=== PATIENT | female | born 1945 | race Caucasian/White ===

== ENCOUNTER → 2023-03-24 11:52 | Outpatient (CLI) | payer MEDICARE, OTHER, SELFPAY ==
--- NOTE | 2023-03-24 | DI.CT.S_ITS ---
PROCEDURE: CT ANGIO CHEST INDICATIONS: ASCENDING AORTA DILATION/H/O TRICUSPID VALVE REPAI TECHNIQUE: After the administration of intravenous contrast, 2.5 mm thick sections acquired from the lung apices to the posterior lung bases. Maximum intensity projection (MIP) oblique sagittal reformats were then acquired parallel to the aortic arch. For radiation dose reduction, the following was used: automated exposure control. COMPARISON: None. FINDINGS: Image quality: Excellent. Aorta: Ascending aorta is aneurysmal in caliber, measuring 4.3 cm. No dissection. Bovine arch anatomy. Great vessel origins are widely patent. Transverse arch and descending thoracic aorta are of normal caliber. Celiac, SMA, and bilateral renal arteries are patent. Mediastinum: Cardiomegaly, pacemaker. No pericardial effusion. No mediastinal or hilar adenopathy by size criteria. Central pulmonary arteries are normal in size. Esophagus is normal in caliber. No hiatal hernia. Lungs and pleura: No acute airspace opacities. No pleural effusions or pneumothorax. Central and peripheral airways are patent and normal in caliber. Bones and chest wall: No axillary adenopathy by size criteria. Thyroid gland is small . No suspicious bony lesions. No vertebral body compression fractures. Bilateral mammoplasties Abdomen: Visualized upper abdominal solid organs and bowel loops appear normal. IMPRESSION: 1. Ascending aortic aneurysm measuring 4.3 cm in diameter. 2. Cardiomegaly. Dictated by: Benson Paul M.D. on 03/24/2023 at 17:54 Approved by: Benson Paul M.D. on 03/24/2023 at 18:01
--- NOTE | 2023-03-24 | DI.ECHO.S_ITS ---
[place] +---------+ [facility] +---------+ : : [address] : [place] [address] : : : : [id number] : : : : Phone: [phone] Echocardiogram Report + + :Name: ABBY ALLEN Study Date: 03/24/2023 Height: 67 in : :[facility] ReadingLocation: Weight: 139 lb : : Gender: Female BSA: 1.7 m2 : :: 1945 Age: 77 yrs BP: 140/78 mmHg: :Reason For Study: ASCENDING AORTA DILATATION : :Ordering Physician: SERENA, : :CANDIDA Performed By: Madelin Cuevas : :Referring: CANDIDA LYONS : + + Interpretation Summary The ejection fraction is estimated to be 65-70%. Diastolic function could not be accurately assessed due to paced rhythm. The left atrium is severely dilated. The right ventricle is normal in size and function. The right atrium is moderately dilated. 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 The aortic valve is bicuspid. There is mild to moderate aortic stenosis. An annuloplasty ring is noted in the tricuspid position. There is mild to moderate tricuspid regurgitation. The right ventricular systolic pressure is estimated to be at least 31 mmHg based on an estimated right atrial pressure of 3 mm Hg. The ascending aorta is mildly enlarged, 4.0 cm. Procedure: A two-dimensional transthoracic echocardiogram with color flow and Doppler was performed. The study quality was technically adequate. There is no prior echocardiogram noted for this patient. The patient has a paced rhythm. The heart rate ranged between 70 bpm during the study. Left Ventricle: The left ventricle is normal in size and wall thickness. The ejection fraction is estimated to be 65-70%. Diastolic function could not be accurately assessed due to paced rhythm. Right Ventricle: There is a pacemaker lead in the right ventricle. The right ventricle is normal in size and function. Atria: The left atrium is severely dilated. The right atrium is moderately dilated. There is a catheter/pacemaker lead seen in the right atrium. There is no Doppler evidence for an interatrial shunt. Mitral Valve: There is a bioprosthetic mitral valve. The mitral valve mean gradient is 5.2 mmHg. The mitral valve EOA is 5.7 cm^2. There is trace mitral regurgitation. Aortic Valve: The aortic valve is bicuspid. The peak aortic velocity is 2.9 m/sec. The aortic valve mean gradient is 21 mmHg. There is mild to moderate aortic stenosis. There is trace aortic regurgitation. Tricuspid Valve: An annuloplasty ring is noted in the tricuspid position. There is mild to moderate tricuspid regurgitation. The right ventricular systolic pressure is estimated to be at least 31 mmHg based on an estimated right atrial pressure of 3 mm Hg. Pulmonic Valve: The pulmonic valve leaflets are thin and pliable; valve motion is normal. There is mild pulmonic regurgitation. Great Vessels: The aortic root is normal size. The ascending aorta is mildly enlarged. The IVC is of normal diameter and collapses greater than 50% with a sniff. This suggests a low right atrial pressure of 3 mm Hg. Pericardium/ Pleura There is no pericardial effusion. There is no pleural effusion. MMode/2D Measurements & Calculations LVIDd: 4.7 cm LVOT diam: 2.0 cm LVIDs: 2.9 cm Ao root diam: 3.5 cm FS: 39.1 % asc Aorta Diam: 4.0 cm IVSd: 1.1 cm Ao Arch Diam (Prox Trans): 3.0 cm LVPWd: 0.97 cm LV goodman. diameter/BSA (cm/m^2): 2.7 LV sys. diameter/BSA (cm/m^2): 1.6 LA A2 area: 27.8 cm2 RA long axis: 5.3 cm LA A4 area: 25.1 cm2 RA area: 20.7 cm2 LA length (vol): 5.7 cm RA vol: 69.1 ml LA vol: 103.4 ml RA : 39.9 ml/m2 LA vol index: 59.7 ml/m2 IVC diam: 1.9 cm RVD1 (basal): 3.7 cm RVD2 (mid): 2.8 cm TAPSE: 1.9 cm Doppler Measurements & Calculations Ao V2 max: 290.3 cm/sec LVOT Max Sawyer: 81.6 cm/sec Ao V2 mean: 200.1 cm/sec LV V1 max P.7 mmHg Ao max P.3 mmHg LV V1 VTI: 18.4 cm Ao mean P.5 mmHg JUAREZ(I,D): 0.90 cm2 Ao V2 VTI: 61.4 cm JUAREZ(V,D): 0.84 cm2 sev ratio: 0.30 JUAREZ indexed to BSA (cm^2/m^2): 0.52 MV E max sawyer: 188.5 cm/sec TR max sawyer: 262.1 cm/sec MV A max sawyer: 3.1 cm/sec TR max P.5 mmHg MV E/A: 60.8 PA V2 max: 75.6 cm/sec Med Peak E' Sawyer: 5.0 cm/sec PA V2 mean: 56.2 cm/sec E/E' med: 38.0 PA mean P.4 mmHg Lat Peak E' Sawyer: 4.2 cm/sec PA pr(Accel): 32.8 mmHg E/E' lat: 45.4 E/e' average: 41.7 MV dec time: 0.27 sec MVA(VTI): 1.3 cm2 MV V2 mean: 97.1 cm/sec SV(LVOT): 55.2 ml MV mean P.2 mmHg MV V2 VTI: 43.0 cm Reading Physician:12:37 PM
[2023-03-24 13:00] LABS: Estimated Glomerular Filt Rate > 60 mL/min (>60)
== END ==
PROVIDERS: Radiology Diagnostic Radiology; Referring Provider Nurse Practitioner Acute Care; Visit Provider Nurse Practitioner Acute Care
DX: I71.21 Aneurysm of the ascending aorta, without rupture (principal); I51.7 Cardiomegaly; Z98.890 Other specified postprocedural states
CPT/HCPCS: 36415; 71275; 82565; 93306; Q9967

== ENCOUNTER → 2025-02-27 11:02 | Outpatient (CLI) | payer MEDICARE, OTHER, SELFPAY ==
--- NOTE | 2025-02-27 11:05 | DI.CT.S_ITS ---
PROCEDURE: CT ANGIO CHEST INDICATIONS: ASCENDING AORTA/H/O TRICUSPID VALVE REPAIR TECHNIQUE: After the administration of intravenous contrast, 2.5 mm thick sections acquired from the lung apices to the posterior lung bases. Maximum intensity projection (MIP) oblique sagittal reformats were then acquired parallel to the aortic arch. For radiation dose reduction, the following was used: automated exposure control. COMPARISON: [facility], CT, CT ANGIO CHEST, 03/24/2023, 13:30. FINDINGS: Image quality: Excellent. Aorta: The ascending aorta measures 4.3 cm in diameter. No mural irregularity or contrast extravasation to suggest aortic injury. Lower Neck: No enlarged lymph nodes. Thyroid: No thyroid nodules which require sonographic follow up, per consensus guidelines. Axillae: No enlarged lymph nodes. Chest Wall: Unremarkable. Bones: Unremarkable. Lungs and Pleura: No pneumothorax or pleural effusions. No consolidation or suspicious nodules. Heart: There is again seen 4 chamber cardiomegaly. Stable filling defect in the left atrial appendage. No pericardial effusion. Thoracic Vessels: Pulmonary arteries demonstrate normal size. Mediastinum and Stacy: No enlarged lymph nodes. Esophagus: No wall thickening. No hiatal hernia. Upper Abdomen: Visualized upper abdomen solid organs and bowel loops appear normal. IMPRESSION: 1. Stable ectasia of the ascending aorta measuring 4.3 cm. No new focal lesion seen. 2. Significant cardiomegaly, with moderate to large amount of thrombus in the left atrial appendage, stable. Dictated by: Jay Waldrop M.D. on 02/27/2025 at 15:10 Approved by: Jay Waldrop M.D. on 02/27/2025 at 15:16
[2025-02-27 11:31] LABS: Estimated Glomerular Filt Rate > 60 mL/min (>60)
== END ==
PROVIDERS: Referring Provider Internal Medicine Cardiovascular Disease; Visit Provider Internal Medicine Cardiovascular Disease
DX: I77.810 Thoracic aortic ectasia (principal); Q23.81 Bicuspid aortic valve; Z95.3 Presence of xenogenic heart valve; Z98.890 Other specified postprocedural states
CPT/HCPCS: 36415; 71275; 82565; Q9967

== ENCOUNTER → 2025-03-09 15:27 | Outpatient (CLI) | payer MEDICARE, OTHER, SELFPAY ==
--- NOTE | 2025-03-09 15:30 | DI.ECHO.S_ITS ---
[place] +---------+ Hospital : : [address] : : [place] : : [id number] : : Phone: [phone] Echocardiogram Report + + :Name: ABBY ALLEN Study Date: 03/09/2025 Height: 67 in : :Hospital ReadingLocation: Weight: 145 lb : : Gender: Female BSA: 1.8 m2 : :: 1945 Age: 79 yrs BP: 175/98 mmHg: :Reason For Study: HX MVR, BICUSPID AV, TV REPAIR : :Ordering Physician: OBDULIA, : :LISSY Hollis Performed By: Sharad Daniels : :Referring: LISSY FLORES : + + Interpretation Summary The ejection fraction is estimated to be 60-65%. Diastolic function could not be accurately assessed due to confounding valvular disease. The left atrium is severely dilated. The right ventricle is normal in size and function. The right atrium is moderately dilated. There is a well-seated, normal functioning bioprosthetic mitral valve. The aortic valve is bicuspid. There is moderate aortic stenosis. An annuloplasty ring is noted in the tricuspid position. There is mild tricuspid regurgitation. The right ventricular systolic pressure is estimated to be at least 43 mmHg based on an estimated right atrial pressure of 8 mm Hg. The ascending aorta is mildly enlarged. Compared to the prior study 03/16/2023, the aortic valve gradient has increased. Procedure: A two-dimensional transthoracic echocardiogram with color flow and Doppler was performed. The study quality was technically adequate. Comparison is made with the echocardiogram of 03/24/2023. The patient has a paced rhythm. Left Ventricle: The left ventricle is normal in size. Left ventricular wall thickness is mild-moderately increased. There is no ventricular septal defect visualized. The ejection fraction is estimated to be 60-65%. Septal motion is consistent with post-operative state. Diastolic function could not be accurately assessed due to confounding valvular disease. Right Ventricle: The right ventricle is normal in size and function. There is a pacemaker lead in the right ventricle. Atria: The left atrium is severely dilated. The right atrium is moderately dilated. There is a catheter/pacemaker lead seen in the right atrium. There is no Doppler evidence for an interatrial shunt. Mitral Valve: There is a bioprosthetic mitral valve. Bioprosthesis leaflets are thickened but move well. The mitral valve mean gradient is 5.1 mmHg. There is trace mitral regurgitation. Aortic Valve: The aortic valve is bicuspid. There is moderate aortic stenosis. The peak aortic velocity is 3.4 m/sec. The aortic valve mean gradient is 30 mmHg. The dimensionless index is 0.24. No aortic regurgitation is present. Tricuspid Valve: An annuloplasty ring is noted in the tricuspid position. There is mild tricuspid regurgitation. The right ventricular systolic pressure is estimated to be at least 43 mmHg based on an estimated right atrial pressure of 8 mm Hg. Pulmonic Valve: The pulmonic valve leaflets are thin and pliable; valve motion is normal. There is mild pulmonic regurgitation. Great Vessels: The aortic root is normal size. The ascending aorta is mildly enlarged. The pulmonary artery is normal size. The IVC is dilated (diameter is greater than 2.1 cm) yet it collapses greater than 50% with a sniff. This suggests a right atrial pressure of 8 mm Hg. Pericardium/ Pleura There is no pericardial effusion. There is no pleural effusion. MMode/2D Measurements & Calculations LVIDd: 4.5 cm LVOT diam: 1.9 cm LVIDs: 2.8 cm Ao root diam: 3.3 cm FS: 37.8 % asc Aorta Diam: 3.8 cm EPSS: 1.6 cm IVSd: 1.4 cm LVPWd: 1.3 cm LV goodman. diameter/BSA (cm/m^2): 2.6 LV sys. diameter/BSA (cm/m^2): 1.6 LA A2 area: 30.8 cm2 RA long axis: 6.1 cm LA A4 area: 28.5 cm2 RA area: 24.4 cm2 LA length (vol): 7.2 cm RA vol: 82.2 ml LA vol: 103.3 ml RA : 46.6 ml/m2 LA vol index: 58.5 ml/m2 IVC diam: 2.3 cm RVD1 (basal): 3.8 cm RVD2 (mid): 2.7 cm TAPSE: 2.2 cm Doppler Measurements & Calculations Ao V2 max: 338.0 cm/sec LVOT Max Sawyer: 85.1 cm/sec Ao V2 mean: 265.6 cm/sec LV V1 max P.9 mmHg Ao max P.7 mmHg LV V1 VTI: 19.8 cm Ao mean P.3 mmHg JUAREZ(I,D): 0.68 cm2 Ao V2 VTI: 82.9 cm JUAREZ(V,D): 0.72 cm2 sev ratio: 0.24 JUAREZ indexed to BSA (cm^2/m^2): 0.39 MV E max sawyer: 189.0 cm/sec TR max sawyer: 296.3 cm/sec MV A max sawyer: 48.3 cm/sec TR max P.1 mmHg MV E/A: 3.9 PA V2 max: 96.1 cm/sec Med Peak E' Sawyer: 5.4 cm/sec PA V2 mean: 68.3 cm/sec E/E' med: 34.8 PA mean P.0 mmHg Lat Peak E' Sawyer: 4.7 cm/sec PA pr(Accel): 48.2 mmHg E/E' lat: 39.9 E/e' average: 37.4 MV dec time: 0.26 sec MVA(VTI): 1.4 cm2 MV V2 mean: 97.7 cm/sec SV(LVOT): 56.7 ml MV mean P.1 mmHg MV V2 VTI: 39.8 cm Reading Physician:05:17 PM
== END ==
LOC: ECHO 15:29
PROVIDERS: PCP Internal Medicine Cardiovascular Disease; Referring Provider Internal Medicine Cardiovascular Disease; Visit Provider Internal Medicine Cardiovascular Disease
DX: Q23.81 Bicuspid aortic valve (principal); I08.2 Rheumatic disorders of both aortic and tricuspid valves; I77.89 Other specified disorders of arteries and arterioles; Z95.3 Presence of xenogenic heart valve; Z98.890 Other specified postprocedural states
CPT/HCPCS: 93306